=== PATIENT | male | born 1955 | race Caucasian/White ===

== ENCOUNTER → 2017-04-15 | Outpatient (CLI) | payer BC ==
[2017-04-15 08:51] LABS: CALCIUM 9.1 mg/dL (8.5-10.1); CREATININE 0.9 mg/dL (0.7-1.3); GFR 85.8; POTASSIUM 4.1 mmol/L (3.5-5.1)
== END | disposition home or self-care (01) ==
LOC: LAB 07:34
PROVIDERS: ATTEND Internal Medicine Cardiovascular Disease
DX: I10 Essential (primary) hypertension (principal)
CPT/HCPCS: 36415; 80048

== ENCOUNTER → 2017-11-26 | Outpatient (CLI) | payer BC ==
[2017-11-26 08:33] LABS: ALBUMIN 3.9 g/dL (3.4-5.0); ALBUMIN/GLOBULIN RATIO 1.3 (1.0-1.7); CALCIUM 9.4 mg/dL (8.5-10.1); CREATININE 0.9 mg/dL (0.7-1.3); GFR 85.8; POTASSIUM 4.1 mmol/L (3.5-5.1); TOTAL BILIRUBIN 0.2 mg/dL (0.2-1.0); TOTAL PROTEIN 6.9 g/dL (6.4-8.2)
--- NOTE | 2017-11-26 09:00 | RAD ---
Carotid ultrasound, 11/26/2017: History: Carotid atherosclerosis Duplex evaluation of the carotid arteries in neck was performed including grayscale, color-flow and spectral Doppler analysis There is mild intimal thickening in the common carotid arteries with mild plaquing at both carotid bifurcations. The plaques are partially calcified. The peak systolic velocity in the right internal carotid artery is 68 cm/s with an end-diastolic velocity of 27 cm/s. The peak systolic velocity in the left internal carotid artery is 78 cm/s with end-diastolic velocity of 31 cm/s. These Doppler findings suggest narrowing in the 0-50% diameter range. Antegrade flow is present in both vertebral arteries in the neck. IMPRESSION: Mild atherosclerotic plaquing at both carotid bifurcations with underlying luminal narrowing in the 0-50% diameter range bilaterally. Note: Stenosis calculations for CTA, MRA and conventional angiography are based upon determination of the distal ICA diameter in accordance with the NASCET methodology. Stenosis calculations for Doppler studies are derived from validated velocity criteria which are known to correlate with NASCET methodology of determining stenosis.
== END | disposition home or self-care (01) ==
LOC: US 07:28
PROVIDERS: ATTEND Internal Medicine Cardiovascular Disease
DX: I65.23 Occlusion and stenosis of bilateral carotid arteries (principal); E78.00 Pure hypercholesterolemia, unspecified
CPT/HCPCS: 36415; 80053; 80061; 93880

== ENCOUNTER → 2019-04-08 | Outpatient (CLI) | payer BC ==
--- NOTE | 2019-04-08 15:26 | RAD ---
EXAM: CHEST 2 VIEWS. HISTORY: Cough. COMPARISON: None available. FINDINGS: Frontal and lateral views of the chest are obtained. Hyperinflation is consistent with chronic obstructive pulmonary disease. There are patchy interstitial and airspace opacities in the right greater than left bases. Opacities in both apices most likely represent pleural parenchymal scarring. Enlargement of the pulmonary arteries suggests pulmonary arterial hypertension. There is no pneumothorax or pleural effusion. The heart is not enlarged. IMPRESSION: 1. Patchy bibasilar opacities may reflect atypical pneumonia or aspiration if acute, or interstitial lung disease superimposed on chronic obstructive pulmonary disease if chronic. Correlate with older studies to differentiate. 2. Biapical opacities likely represent scarring and can also be correlated for stability. Electronically signed by: Sofie Bermudez MD (04/08/2019 3:22 PM) [facility]
== END | disposition home or self-care (01) ==
LOC: PMG 14:21
PROVIDERS: ATTEND Physician Assistant
DX: I77.89 Other specified disorders of arteries and arterioles (principal); R91.8 Other nonspecific abnormal finding of lung field
CPT/HCPCS: 71046